=== PATIENT | female | born 1965 | race African-American/Black ===

== ENCOUNTER 2016-12-15 12:11 | Emergency (ER) | payer MEDICAID ==
[~2016-12-15] VITALS: Ht 157.5 cm; Wt 97.1 kg
--- NOTE | 2016-12-15 12:12 | NUR ---
Pt report received from CHRISTO Barillas. Pt c/o pain beneath left breast, non-radiating x 1 week. Pain reproducible per deep inspirations and palpation. Pt states that she has been having problems with her sinsuses with drainage to back of throat, causing her to cough.
--- NOTE | 2016-12-15 12:12 | NUR ---
Patient to ER bed 2 to gown for evaluation. Side rails up. Report given to Kennedy VILLAFUERTE.
--- NOTE | 2016-12-15 12:18 | NUR ---
ER at bedside examining patient.
[2016-12-15 12:26] VITALS: BP_SYST 157
[2016-12-15] MEDS ORDERED: KETOROLAC TROMETHAMINE 30 MG VIAL IM ONE (12:30)
--- NOTE | 2016-12-15 13:49 | NUR ---
Patient given written and verbal discharge instructions and verbalizes understanding. ER MD discussed with patient the results and treatment provided. Patient in stable condition. ID arm band removed. Rx of MOTRIN given. Patient educated on pain management and to follow up with PMD. Pain Scale 2. Opportunity for questions provided and answered.
[2016-12-15 13:54] VITALS: BP_SYST 145
== END 2016-12-15 13:54 | disposition home or self-care (01) ==
LOC: SED 12:11
DX: M94.0 Chondrocostal junction syndrome [Tietze] (principal)
CPT/HCPCS: 93005; 96372; 99283; J1885

== ENCOUNTER 2018-05-27 05:54 | Emergency (ER) | payer MEDICAID ==
[~2018-05-27] VITALS: Ht 157.5 cm; Wt 95.3 kg
[2018-05-27 06:00] VITALS: BP_SYST 155
[2018-05-27] MEDS ORDERED: DEXAMETHASONE SOD PHOSPHATE 10 MG/ML VIAL IM ONE (07:45)
[2018-05-27 07:55] VITALS: BP_SYST 145
== END 2018-05-27 07:55 | disposition home or self-care (01) ==
LOC: SED 05:54
DX: R06.00 Dyspnea, unspecified (principal); R09.81 Nasal congestion; Z98.890 Other specified postprocedural states
CPT/HCPCS: 70490; 96372; 99284; J1100